=== PATIENT | male | born 1970 | race Caucasian/White ===

== ENCOUNTER 2017-09-20 18:32 | Emergency (ER) | payer OTHER ==
[~2017-09-20] VITALS: Ht 165.1 cm; Wt 77.1 kg
[2017-09-20 18:36] VITALS: BP 156/81; Ht 165.1 cm; Wt 77.1 kg
== END 2017-09-20 20:40 | disposition home or self-care (01) ==
LOC: ED 18:32
DX: J20.9 Acute bronchitis, unspecified (principal); J32.0 Chronic maxillary sinusitis; M94.0 Chondrocostal junction syndrome [Tietze]; R03.0 Elevated blood-pressure reading, without diagnosis of hypertension
CPT/HCPCS: J7613

== ENCOUNTER 2020-07-08 22:32 | Emergency (ER) | payer OTHER ==
[~2020-07-08] VITALS: Ht 165.1 cm; Wt 79.8 kg
[2020-07-08 22:49] VITALS: Ht 165.1 cm; Wt 79.8 kg
[2020-07-08 23:53] VITALS: BP 128/79
== END 2020-07-08 23:53 | disposition home or self-care (01) ==
LOC: ED 22:32
DX: S16.1XXA Strain of muscle, fascia and tendon at neck level, initial encounter (principal); M25.511 Pain in right shoulder; M25.512 Pain in left shoulder; V49.40XA Driver injured in collision with unspecified motor vehicles in traffic accident, initial encounter; Y93.I9 Activity, other involving external motion; Y92.488 Other paved roadways as the place of occurrence of the external cause; Y99.8 Other external cause status